=== PATIENT | male | born 1970 | race Caucasian/White ===

== ENCOUNTER → 2020-10-31 | Outpatient (CLI) | payer BC ==
--- NOTE | 2020-11-03 09:52 | NM ---
EXAMINATION TYPE: NM myocardial SPECT single DATE OF EXAM: 10/31/2020 COMPARISON: NONE HISTORY: Hypertension Following administration of 10.01 mCi Tc 99m Sestamibi. Images obtained 45 minutes post injection. FINDINGS: Calculated ejection fraction is 60% Wall motion appears normal. There may be some diminished radiotracer accumulation within the inferior wall. This is not as well appreciated on the Polar maps. No definite diaphragm artifact is identifie d. IMPRESSION: 1. Normal ejection fraction of 60%. 2. Diminished radiotracer inferior wall. Prior infarct could be considered.
== END | disposition home or self-care (01) ==
LOC: RADNMMAIN 07:24
PROVIDERS: ATTEND Family Medicine
DX: I10 Essential (primary) hypertension (principal); R94.31 Abnormal electrocardiogram [ECG] [EKG]
CPT/HCPCS: 78451; A9500